=== PATIENT | male | born 2000 | race Caucasian/White ===

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

== ENCOUNTER 2022-02-03 20:27 | Emergency (ER) | payer OTHER, SELFPAY ==
[2022-02-03] VITALS (9 sets, daily range): BP systolic 106–121; BP diastolic 43–59; PULSE 65–98; RESP 14–18; TEMP 36.8; O2SAT 97–100
--- NOTE | 2022-02-03 20:45 | DI.CT_ITS ---
Exam(s) CT RENAL COLIC WO EXAM: CT RENAL COLIC WO CLINICAL HISTORY: left flank pain. TECHNIQUE: Imaging Protocol: Axial computed tomography images with coronal and sagittal reformatted images were created and reviewed. COMPARISON: No exams were available for comparison FINDINGS: ABDOMEN: Lung Bases: Normal where visualized. Liver: Normal density. No measurable mass. Gallbladder and biliary tract: No radiodense calculus or biliary ductal dilation. Pancreas: Normal density, no abnormal calcifications or inflammatory process. Spleen: Normal. Kidneys: Normal size, contour and axis.No radiodense stones or obstructive uropathy. No masses seen. Adrenal glands: No mass is seen. Lymph nodes: There are mildly prominent lymph nodes seen in the mesentery and right lower quadrant. Abdominal Aorta: Abdominal portion non-dilated. PELVIS: Bladder:Symmetric distention, no gross wall thickening. Bowel: No obstruction or bowel wall thickening. Appendix is unremarkable. Peritoneal cavity: No ascites, collection or mesenteric inflammatory response. No free air. Reproductive organs: Unremarkable as visualized. Bones: Within normal limits. Soft Tissues: Within normal limits. IMPRESSION: 1. No evidence of nephrolithiasis or hydronephrosis. 2. Mildly prominent lymph nodes in the mesentery and right lower quadrant which may represent a mesen teric adenitis/enteritis. RADIATION DOSE DELIVERED: 1,057.42mGy.cm Total DLP DATA REPOSITORY: All CT scans at this facility are submitted to the National Radiology Data Registry (NRDR) Dose Index Registry (DIR) with the [employer] (ACR). RADIATION OPTIMIZATION: All CT scans at this facility use at least one of these dose optimization te chniques: automated exposure control; mA and/or kV adjustment per patient size (includes targeted exa ms where dose is matched to clinical indication); or iterative reconstruction.
--- NOTE | 2022-02-03 20:53 | ED.GENADUL_ITS ---
Discharge Plan Disposition Patient Disposition: HOME Condition: Stable Discharge Details Clinical Impression: Abdominal pain Primary Care Provider: Anisa Arroyo ED Provider: Eric Park Home Meds and New Rx's Prescriptions: New ondansetron 4 mg tablet,disintegrating 4 mg PO Q8H PRN (Reason: nausea and vomiting) Qty: 30 0RF Continued trazodone 50 mg Tablet 50 mg PO HS PRN spironolactone 100 mg Tablet 100 mg PO DAILY estradiol 2 mg Tablet 2 mg PO DAILY fluoxetine 60 mg Tablet 60 mg PO DAILY methylphenidate HCl 27 mg Tablet Extended Release 24hr 27 mg PO DAILY Discharge Instructions Instructions: Mesenteric Adenitis (ED) Additional Instructions: if pain continues next week follow up with your primary care provider if you feel more ill, have severe worsening pain despite tylenol and ibuprofen or persistent vomit return to the emergency department Medical Decision Making 21 yo male who denies chronic medical problems or prior abdominal surgeries comes in with cc of left upper and left oblique area pain. He states he felt well all day then was in bed when he had sudden onset of pain in above stated area. Also has nausea, denies vomit. Denies urinary symptoms, no fevers/chills, no testicle pain or swelling. He appears in pain but is stable. He is tender to the luq without guarding and left oblique, no cva tenderness, no rashes, no distention, no right sided abdomen pain. Given sudden onset of pain and location concern for kidney stone and less likely pancreatitis, will order cbc, cmp, lipase, and ct renal colic to further evaluate labs unremarkable, ct shows signs of adenitis. He states his pain is now gone completely after one dose of toradol, no abdominal tenderness on exam. Given reassuring findings and improvement with toradol will d/c and advised to f/u with pcp, return precautions given Differential Diagnosis Differential Diagnosis: kidney stone, diverticulitis, colitis Imaging Data Radiologic Study: Attestation: I personally reviewed and interpreted this imaging study as follows: Imaging: CT Scan Radiologist's impression: Question mild adenitis/enteritis No CT evidence for obstructive uropathy Lab Data Lab results reviewed: Yes I reviewed the patient's lab results. HPI General Mode of arrival: ambulatory . Date/Time Provider Initiated Documentation: 02/03/22 20:32 . Limitations to Documentation: no limitations . Information obtained by: patient . History of Present Illness 21 year old M presents to the emergency department with the chief complaint of left oblique/abdomen pain, described as moderate and severe, Quality is described as sharp, and is localized to the abdomen. Patient reports no radiation. Patient started experiencing this hour(s) (1) and it has been constant. No relieving factors improve symptom(s), No exacerbating factors reported . Patient notes denies chest pain and weakness. Patient did receive the following treatments prior to arrival, none Related Data Home Medications Medication Instructions Recorded Confirmed methylphenidate HCl 27 mg 27 mg PO DAILY 12/05/18 12/05/18 tablet,extended release 24 hr estradiol 2 mg tablet 2 mg PO DAILY 02/03/22 02/03/22 fluoxetine 60 mg tablet 60 mg PO DAILY 02/03/22 02/03/22 ondansetron 4 mg disintegrating 4 mg PO Q8H PRN nausea and 02/03/22 tablet vomiting #30 tabs spironolactone 100 mg tablet 100 mg PO DAILY 02/03/22 02/03/22 trazodone 50 mg tablet 50 mg PO HS PRN 02/03/22 02/03/22 Previous Rx's Medication Instructions Recorded ondansetron 4 mg disintegrating 4 mg PO Q8H PRN nausea and 02/03/22 tablet vomiting #30 tabs Allergies Allergy/AdvReac Type Severity Reaction Status Date / Time No Known Allergies Allergy Unverified 02/03/22 20:43 General Stated Complaint: Abd Prob VENANCIO: 3 Review of Systems All systems reviewed & are unremarkable except as noted in HPI and below Constitutional Constitutional: Denies chills, Denies fever(s) and Denies weakness Cardiovascular Cardiovascular: Denies chest pain and Denies dyspnea Respiratory Respiratory: Denies cough and Denies dyspnea Gastrointestinal Gastrointestinal: Denies vomiting Genitourinary Genitourinary: Denies dysuria Musculoskeletal Musculoskeletal: Denies joint swelling Integumentary/Breasts Skin/Breast: Denies rash Neurologic Neurologic: Denies weakness PFSH All Active Problems (Updated 02/03/22 @ 22:13 by Eric Park MD) Abdominal pain (Acute) Social History Smoking/Tobacco Use Status: Never Smoking risk assessment performed?: Yes Alcohol Intake: never Drug use: Never Substance use type: marijuana Do you feel safe at home: Yes Do you feel safe in your relationship?: Yes Exam Const General: no acute distress Orientation: alert HENMT Head: normal to inspection Ears: external ears normal General nose exam: external nose normal Mouth: moist mucous membranes Eyes General: appearance normal, both eyes and all related structures Neck Neck: normal visual inspection Resp Effort & Inspection: normal respiratory effort and able to speak in complete sen tences Cardio Rate: regular rate GI Palpation: soft and tender Back/Spine/Pelvis Back: no CVA tenderness Skin General skin exam: no rashes or lesions noted Neuro General: patient alert and patient oriented x3 Extrem General: normal to inspection Psych Mental Status: mental status grossly normal Course Vital Signs Vital signs: Vital Signs Temperature 36.8 C 02/03/22 20:39 Pulse 98 H 02/03/22 20:39 Respiratory Rate 18 02/03/22 20:39 Blood Pressure 121/59 L 02/03/22 20:39 Pulse Oximetry 97 02/03/22 20:39 Temperature 36.8 C 02/03/22 20:39 Temperature Source Oral 02/03/22 20:39 Pulse 98 H 02/03/22 20:39 Respiratory Rate 18 02/03/22 20:39 Respiratory Effort Non-Labored 02/03/22 20:47 Blood Pressure 121/59 L 02/03/22 20:39 Pulse Oximetry 97 02/03/22 20:39 Oxygen Delivery Method Room Air 02/03/22 20:39 Oxygen Flow Rate 0 02/03/22 20:39 Pain Level 9 02/03/22 20:39
[2022-02-03] MEDS: Normal Saline 1,000 ML 1000 ML IV (21:18)
[2022-02-03] MEDS: Ketorolac 15 MG/ML VIAL IVP (21:19)
[2022-02-03 21:30] LABS: Abs Immature Grans 0.03 10^3/uL (0.0-0.06); Absolute Basophil Count 0.03 10^3/uL (0.0-0.2); Absolute Lymphocyte Count 2.48 10^3/uL (1.2-3.4); Absolute Monocyte Count 0.52 10^3/uL (0.1-0.8); Absolute Neutrophil Count 6.74 10^3/uL (1.2-6.7); Basophils % 0.3; HCT 42.9 % (40.0-50.0); HGB 14.3 g/dL (13.5-17.5); Immature Grans % 0.3; Lymphocytes % 25.1; MCH 27.9 pg (27.0-33.0); MCHC 33.3 % (32.0-36.0); MCV 84 fL (80-95); MPV 9.4 fL (8.0-11.0); Monocytes % 5.3; Platelet Count 427 10^3/uL (130-400); RBC 5.12 10^6/uL (4.36-5.78); RDW 12.2 % (11.8-14.1)
[2022-02-03] MEDS: Ondansetron 4 MG/2 ML VIAL IVP (21:34)
[2022-02-03 21:45] LABS: ALT 16 U/L (16-63); AST 14 U/L (15-37); Albumin 4.3 g/dL (3.4-5.0); Alkaline Phosphatase 100 U/L (46-116); Anion Gap 7.6 mmol/L (3-11); BUN 10 mg/dL (7-18); Bilirubin, Total 0.4 mg/dL (0.2-1.0); CO2 27.4 mmol/L (21.0-32.0); Calcium 9.2 mg/dL (8.5-10.1); Chloride 104 mmol/L (98-107); Estimated GFR 111.19 (mL/min/1.73m2); Glucose 111 mg/dL (74-106); Lipase 90 U/L (73-393); Potassium 3.5 mmol/L (3.5-5.1); Sodium 139 mmol/L (136-145); Total Protein 8.1 g/dL (6.4-8.2)
--- NOTE | 2022-02-03 21:46 | DI.VRAD_ITS ---
PROCEDURE INFORMATION: Exam: CT Abdomen And Pelvis Without Contrast Exam date and time: 02/03/2022 9:32 PM Age: 21 years old Clinical indication: Condition or disease; Other: Left flank pain TECHNIQUE: Imaging protocol: Computed tomography of the abdomen and pelvis without contrast. COMPARISON: CR XR CHEST 2V PA LATERAL 12/05/2018 11:32 AM FINDINGS: Liver: Normal. No mass. Gallbladder and bile ducts: Normal. No calcified stones. No ductal dilation. Pancreas: Normal. No ductal dilation. Spleen: Normal. No splenomegaly. Adrenal glands: Normal. No mass. Kidneys and ureters: Normal. No hydronephrosis. Stomach and bowel: No obstruction. Question mild mucosal thickening. Appendix: No evidence of appendicitis. Intraperitoneal space: Unremarkable. No free air. No significant fluid collection. Vasculature: Unremarkable. No abdominal aortic aneurysm. Lymph nodes: Prominent mesenteric lymph nodes. Urinary bladder: Unremarkable as visualized. Reproductive: Unremarkable as visualized. Bones/joints: Unremarkable. No acute fracture. Soft tissues: Unremarkable. IMPRESSION: Question mild adenitis/enteritis No CT evidence for obstructive uropathy Dictated and Authenticated by: Zain Motley MD. Ordering:TERRI Reyes MD
== END 2022-02-03 22:35 | disposition home or self-care (01) ==
PROVIDERS: Emergency Provider Emergency Medicine; PCP Pediatrics
DX: R10.12 Left upper quadrant pain (principal); R10.32 Left lower quadrant pain; R11.0 Nausea
CPT/HCPCS: 36415; 80053; 83690; 96361; 96374; 96375; 99284; 74176; 85025; J1885; J2405

== ENCOUNTER 2022-04-29 15:30 | Emergency (ER) | payer OTHER, SELFPAY ==
[2022-04-29 15:36] VITALS: BP 117/50; PULSE 84; TEMP 36.6; O2SAT 97
--- NOTE | 2022-04-29 15:45 | DI.RAD_ITS ---
Exam(s) XR HAND LT COMPLETE EXAM: XR HAND LT COMPLETE CLINICAL HISTORY: Injury left index finger TECHNIQUE: COMPARISON: No exams were available for comparison FINDINGS: Three views were obtained. There is no evidence of acute fracture or dislocation. IMPRESSION: RADIATION DOSE DELIVERED: Total DLP
--- NOTE | 2022-04-29 16:29 | ED.GENADUL_ITS ---
Discharge Plan Disposition Patient Disposition: Home Condition: Stable Discharge Details Clinical Impression: Crushing injury of left index finger, initial encounter Primary Care Provider: Anisa Arroyo ED Provider: Emma Yuan Home Meds and New Rx's Prescriptions: No Action trazodone 50 mg Tablet 50 mg PO HS PRN spironolactone 100 mg Tablet 100 mg PO DAILY estradiol 2 mg Tablet 2 mg PO DAILY fluoxetine 60 mg Tablet 60 mg PO DAILY ondansetron 4 mg tablet,disintegrating 4 mg PO Q8H PRN (Reason: nausea and vomiting) Qty: 30 0RF methylphenidate HCl 27 mg Tablet Extended Release 24hr 27 mg PO DAILY Discharge Instructions Instructions: Crush Injury (ED) Additional Instructions: Wear the finger splint daily as needed for comfort. Please take Tylenol or Ibuprofen with food every 4-6 hours as needed for pain and swelling. Follow-up with orthopedics within the next 1 to 2 weeks. You are placed on a care management list. She will call you for an appointment however you may call them tomorrow morning to make an appointment. Stand Alone Forms: Work Release Referrals: Timothy Santos MD [ [facility] STAFF PHYSICIAN] - 1 week Discharge Data Discharge Date/Time-TO BE ENTERED AT DEPARTURE: 04/29/22 17:12 Medical Decision Making 21-year-old male presents to the ER chief complaint of left finger pain status post crush injury while at work prior to arrival. Phalanx tenderness and swelling. We will have patient follow up with Ortho for further evaluation and [facility] which is to rule out fracture or tendon injury. Will place patient in an alligator aluminum splint and instructed on RICE procedures and Tylenol ibuprofen. X-ray results noted below. I am questioning a abnormality at the head of the proximal phalanx this is where the patient is tender. However this could just be a sprain. Will place patient in splint instructed on RICE procedures Tylenol ibuprofen and follow-up with Ortho if needed. This text was generated using [employer] system, please disregard any oddities of phrase or misspellings. Imaging Data Radiologic Study: Imaging: X-Ray Radiologist's impression: XR HAND LT COMPLETE EXAM: XR HAND LT COMPLETE CLINICAL HISTORY: Injury left index finger TECHNIQUE: COMPARISON: No exams were available for comparison FINDINGS: Three views were obtained. There is no evidence of acute fracture or dislocation. Sign Out No HPI General Mode of arrival: ambulatory . Date/Time Provider Initiated Documentation: 04/29/22 15:52 . Information obtained by: patient, RN notes reviewed and old records reviewed . HPI Narrative: 21-year-old male presents to the ER chief complaint of left finger pain status post crush injury while at work prior to arrival. He reports a large metal piece of equipment slammed down on his finger. He is having difficulty flexing his finger. Distal circulation and sensation intact. Related Data Home Medications Medication Instructions Recorded Confirmed methylphenidate HCl 27 mg 27 mg PO DAILY 12/05/18 04/29/22 tablet,extended release 24 hr estradiol 2 mg tablet 2 mg PO DAILY 02/03/22 04/29/22 fluoxetine 60 mg tablet 60 mg PO DAILY 02/03/22 04/29/22 ondansetron 4 mg disintegrating 4 mg PO Q8H PRN nausea and 02/03/22 04/29/22 tablet vomiting #30 tabs spironolactone 100 mg tablet 100 mg PO DAILY 02/03/22 04/29/22 trazodone 50 mg tablet 50 mg PO HS PRN 02/03/22 04/29/22 Previous Rx's Medication Instructions Recorded ondansetron 4 mg disintegrating 4 mg PO Q8H PRN nausea and 02/03/22 tablet vomiting #30 tabs Allergies Allergy/AdvReac Type Severity Reaction Status Date / Time No Known Allergies Allergy Unverified 04/29/22 15:39 General Stated Complaint: Orthopedic VENANCIO: 4 Review of Systems Musculoskeletal Musculoskeletal: Reports as per HPI, Reports arthralgias, Reports joint swelling and Reports limited range of motion PFSH All Active Problems (Updated 04/29/22 @ 16:53 by Emma Yuan NP) Crushing injury of left index finger, initial encounter (Acute) Social History Smoking/Tobacco Use Status: Never Smoking risk assessment performed?: Yes Alcohol Intake: never Drug use: Occasionally Substance use type: marijuana Do you feel safe at home: Yes Do you feel safe in your relationship?: Yes Exam Extrem Left upper extremity: hand (Decreased active flexion, intact passive flexion, no obvious deformity ) Details: normal to inspection, normal capillary refill, neurosensory exam normal and tenderness; no lacerations, no foreign bodies and no puncture wound Course Vital Signs Vital signs: Vital Signs Temperature 36.6 C 04/29/22 15:36 Pulse 84 04/29/22 15:36 Blood Pressure 117/50 L 04/29/22 15:36 Pulse Oximetry 97 04/29/22 15:36 Temperature 36.6 C 04/29/22 15:36 Temperature Source Temporal Artery Scan 04/29/22 15:36 Pulse 84 04/29/22 15:36 Respiratory Effort Non-Labored 04/29/22 15:41 Blood Pressure 117/50 L 04/29/22 15:36 Blood Pressure Position Sitting 04/29/22 15:36 Pulse Oximetry 97 04/29/22 15:36 Oxygen Delivery Method Room Air 04/29/22 15:36 Oxygen Flow Rate 0 04/29/22 15:36
[2022-04-29] MEDS: Ibuprofen 600 MG TAB PO (17:09)
== END 2022-04-29 17:12 | disposition home or self-care (01) ==
PROVIDERS: Emergency Provider Registered Nurse Emergency; PCP Pediatrics
DX: S67.191A Crushing injury of left index finger, initial encounter (principal); W23.0XXA Caught, crushed, jammed, or pinched between moving objects, initial encounter; Y99.0 Civilian activity done for income or pay
CPT/HCPCS: 29130; 99283; 73130

== ENCOUNTER 2022-06-17 19:41 | Emergency (ER) | payer OTHER, SELFPAY ==
[2022-06-17 19:48] VITALS: BP 118/56; PULSE 83; RESP 16; TEMP 37; O2SAT 99
--- NOTE | 2022-06-17 20:15 | DI.CT_ITS ---
Exam(s) CT HEAD CERVICAL SPINE WO EXAM: CT HEAD CERVICAL SPINE WO CLINICAL HISTORY: s/p head injury,pain whole head,worse back of head. TECHNIQUE: Imaging Protocol: Axial computed tomography images with coronal and sagittal reformatted images were created and reviewed COMPARISON: No exams were available for comparison FINDINGS: CT Head: Ventricles and Extra axial spaces: Normal in size and morphology for the patient's age. Hemorrhage: None. Cerebral parenchyma: Normal. Midline shift: None. Brainstem/Cerebellum: Normal. Calvarium: Normal. Visualized Paranasal sinuses/Mastoids: Clear. Soft Tissues: Unremarkable. CT Cervical Spine: Bones: No acute fracture or subluxation. There is straightening of the normal cervical lordosis which may be related to patient positioning or muscle spasm. Soft Tissues: Unremarkable. Lung Apices: Clear. IMPRESSION: 1. No acute intracranial process. 2. No acute fracture or subluxation in the cervical spine. RADIATION DOSE DELIVERED: 1,405.89mGy.cm Total DLP DATA REPOSITORY: All CT scans at this facility are submitted to the National Radiology Data Registry (NRDR) Dose Index Registry (DIR) with the [employer] (ACR). RADIATION OPTIMIZATION: All CT scans at this facility use at least one of these dose optimization te chniques: automated exposure control; mA and/or kV adjustment per patient size (includes targeted exa ms where dose is matched to clinical indication); or iterative reconstruction.
--- NOTE | 2022-06-17 20:20 | ED.GENADUL_ITS ---
Discharge Plan Disposition Patient Disposition: Home Condition: Improving Discharge Details Clinical Impression: Closed head injury without loss of consciousness Primary Care Provider: Anisa Arroyo ED Provider: Jessica Medina Home Meds and New Rx's Prescriptions: Continued trazodone 50 mg Tablet 50 mg PO HS PRN fluoxetine 60 mg Tablet 60 mg PO DAILY ondansetron 4 mg tablet,disintegrating 4 mg PO Q8H PRN (Reason: nausea and vomiting) Qty: 30 0RF estradiol 2 mg tablet 2 mg PO BID spironolactone 100 mg tablet 100 mg PO BID methylphenidate HCl 27 mg Tablet Extended Release 24hr 27 mg PO DAILY prazosin 1 mg Capsule 1 mg PO .QHS Discharge Instructions Instructions: Head Injury (ED), Post Concussion Syndrome (ED) Additional Instructions: Your imaging today is reassuring and shows no evidence of acute concerning findings. Drink plenty of fluids and get plenty of rest. Alternate tylenol and motrin as needed and directed for pain. Follow up with your primary care doctor in 1 week as needed. Return to the emergency department with any worsening or new concerning symptoms such as persistent or worsening headaches, persistent vomiting or any other concerns. Discharge Data Discharge Physician: Jessica Medina Medical Decision Making 21-year-old male who identifies as female presents with head injury that occurred 3 hours ago. No reported loss of consciousness or vomiting. Vitals within normal limits. She appears comfortable and nontoxic. There is no evidence of head trauma but has tenderness to the occipital portion of the scalp. No midline C-spine or bilateral paraspinal cervical tenderness. There is some reproducible neck pain with full extension. No focal deficits. Discussed patient's mechanism and exam at length and can offer CT imaging or can continue to monitor. Patient states she would like to proceed with CT imaging. Will order CT head and cervical spine and give a dose of Tylenol. CT head and cervical spine negative for acute findings. There is straightening of normal lordosis in the cervical spine consistent likely with muscle spasm. Patient feels comfortable going home. Postconcussive instructions provided. Advised to follow up with the primary care doctor for re-evaluation. Usual and customary return precautions given prior to discharge. Medical Records Medical records reviewed: Yes I reviewed the patient's medical records. Imaging Data Radiologic Study: Radiologist's impression: CT Head Without Contrast Exam date and time: 06/17/2022 8:39 PM Age: 21 years old Clinical indication: Injury or trauma; Blunt trauma and other: S/P head injury, pain whole head, worse back of head TECHNIQUE: Imaging protocol: Computed tomography of the head without contrast. COMPARISON: No relevant prior studies available. FINDINGS: Brain: Normal. No hemorrhage. Unremarkable white matter. No mass effect. Cerebral ventricles: No ventriculomegaly. Paranasal sinuses: Visualized sinuses are unremarkable. No fluid levels. Mastoid air cells: Visualized mastoid air cells are well aerated. Bones/joints: Unremarkable. No acute fracture. Soft tissues: Unremarkable. IMPRESSION: No acute intracranial abnormality. CT Cervical Spine Without Contrast Exam date and time: 06/17/2022 8:39 PM Age: 21 years old Clinical indication: Injury or trauma; Blunt trauma and other: S/P head injury, pain whole head, worse back of head TECHNIQUE: Imaging protocol: Computed tomography of the cervical spine without contrast. COMPARISON: CR XR CHEST 2V PA LATERAL 12/05/2018 11:32 AM FINDINGS: Bones/joints: No acute fracture.? Mild lordosis straightening No significant disc protrusion. No severe spinal canal stenosis.? Lungs: Lung apices are normal. Soft tissues: Unremarkable. IMPRESSION: No acute cervical fracture Mild lordosis straightening which may be positional or related to muscle spasm HPI General Mode of arrival: ambulatory . Date/Time Provider Initiated Documentation: 06/17/22 20:01 . Limitations to Documentation: no limitations . Information obtained by: patient . HPI Narrative: Patient is a 21-year-old male who identifies as female presents with headache after some fall on ice with head injury 3 hours ago. Patient states she was walking when she slipped on ice on cement and hit the back of her head on the hard ground. Patient admits to immediate headache but denies any loss of consciousness, blurry vision, nausea or vomiting. She states her headache was 8/10 but has improved to 4/10. She admits to some neck pain with range of motion, mostly extension of her head. She denies any other injuries. She has not taken any medication for pain. She states initially after the injury she felt the back of her head and then noticed a little bit of blood on her fingers which lasted about 5 minutes. She states her tetanus is up-to-date. Related Data Home Medications Medication Instructions Recorded Confirmed methylphenidate HCl 27 mg 27 mg PO DAILY 12/05/18 06/17/22 tablet,extended release 24 hr fluoxetine 60 mg tablet 60 mg PO DAILY 02/03/22 06/17/22 ondansetron 4 mg disintegrating 4 mg PO Q8H PRN nausea and 02/03/22 06/17/22 tablet vomiting #30 tabs trazodone 50 mg tablet 50 mg PO HS PRN 02/03/22 06/17/22 estradiol 2 mg tablet 2 mg PO BID 05/03/22 06/17/22 spironolactone 100 mg tablet 100 mg PO BID 05/03/22 06/17/22 prazosin 1 mg capsule 1 mg PO .QHS 06/17/22 06/17/22 Previous Rx's Medication Instructions Recorded ondansetron 4 mg disintegrating 4 mg PO Q8H PRN nausea and 02/03/22 tablet vomiting #30 tabs Allergies Allergy/AdvReac Type Severity Reaction Status Date / Time gluten Allergy Uncoded 06/17/22 19:53 tati Allergy Uncoded 06/17/22 19:53 raw tomatoe Allergy Uncoded 06/17/22 19:52 General Stated Complaint: HeadInjury VENANCIO: 3 Review of Systems All systems reviewed & are unremarkable except as noted in HPI and below Constitutional Constitutional: Reports as per HPI, Denies chills, Denies fever(s) and Reports headache(s) Eyes Eyes: Denies blurry vision ENT Ears, Nose, Mouth, and Throat: Reports dizziness, Reports headache(s), Denies sore throat and Denies throat swelling Cardiovascular Cardiovascular: Denies chest pain and Denies dyspnea Respiratory Respiratory: Denies cough and Denies dyspnea Gastrointestinal Gastrointestinal: Denies abdominal pain, Denies diarrhea and Denies vomiting Genitourinary Genitourinary: Denies hematuria and Denies dysuria Musculoskeletal Musculoskeletal: Denies back pain and Denies numbness Integumentary/Breasts Skin/Breast: Denies lesions and Denies rash Neurologic Neurologic: Reports dizziness, Reports headache(s), Denies localized weakness and Denies numbness Allergic/Immunologic Allergic/Immunologic: Denies throat swelling PFSH All Active Problems (Updated 06/17/22 @ 22:01 by Jessica Medina DO) Closed head injury without loss of consciousness (Acute) Medical History (Updated 06/17/22 @ 22:01 by Jessica Medina DO) ADHD Depression Transgender man on hormone therapy Surgical History (Updated 06/17/22 @ 22:01 by Jessica Medina DO) H/O wisdom tooth extraction Social History Smoking/Tobacco Use Status: Never Smoking risk assessment performed?: Yes Alcohol Intake: never Drug use: Occasionally Substance use type: marijuana Do you feel safe at home: Yes Do you feel safe in your relationship?: Yes Exam Const General: cooperative and no acute distress Orientation: alert, awake and oriented x3 HENMT Head: normal to inspection, no palpable skull fracture, normocephalic and atraumatic Ears: hearing grossly normal bilaterally, external ears normal and TM's normal bilaterally General nose exam: external nose normal Face and sinus: normal facial exam Mouth: oral mucosae normal Eyes General: appearance normal, both eyes and all related structures Pupils: PERRL EOM: EOM intact bilaterally Neck Neck: normal visual inspection and No submandibular swelling Lymphatic: no lymphadenopathy noted Chest Chest: normal inspection of the chest and no tenderness Resp Effort & Inspection: normal respiratory effort and able to speak in complete sentences Cardio Rate: regular rate Back/Spine/Pelvis Cervical Spine: No cervical muscular tenderness, No pain with cervical ROM and No cervical spinal tenderness Skin General skin exam: no rashes or lesions noted Neuro General: patient alert, patient awake and patient oriented x3 Cranial Nerves: CN's II-XI intact bilaterally Cognition: normal cognition Speech: speech normal Motor: muscle tone normal throughout and strength 5/5 throughout Sensory Exam: no sensory deficits noted Extrem General: normal to inspection, full ROM, capillary refill normal, no calf tenderness bilaterally and no edema Psych Appearance: grossly normal Mental Status: mental status grossly normal Speech and Movement: speech and movement normal Affect: normal affect Course Vital Signs Vital signs: Vital Signs Temperature 98.6 F 06/17/22 19:48 Pulse 83 06/17/22 19:48 Respiratory Rate 16 06/17/22 19:48 Blood Pressure 118/56 L 06/17/22 19:48 Pulse Oximetry 99 06/17/22 19:48 Temperature 98.6 F 06/17/22 19:48 Temperature Source Temporal Artery Scan 06/17/22 19:48 Pulse 83 06/17/22 19:48 Respiratory Rate 16 06/17/22 19:48 Respiratory Effort 06/17/22 20:04 Blood Pressure 118/56 L 06/17/22 19:48 Blood Pressure Position Sitting 06/17/22 19:48 Pulse Oximetry 99 06/17/22 19:48 Oxygen Delivery Method Room Air 06/17/22 19:48 Oxygen Flow Rate 0 06/17/22 19:48 Pain Level 4 06/17/22 19:48
[2022-06-17] MEDS: Acetaminophen 500 MG TAB 1000 MG PO (20:24)
--- NOTE | 2022-06-17 20:27 | NUR.NOTE ---
Pt placed in c-collar per ords.
--- NOTE | 2022-06-17 20:54 | DI.VRAD_ITS ---
PROCEDURE INFORMATION: Exam: CT Head Without Contrast Exam date and time: 06/17/2022 8:39 PM Age: 21 years old Clinical indication: Injury or trauma; Blunt trauma and other: S/P head injury, pain whole head, worse back of head TECHNIQUE: Imaging protocol: Computed tomography of the head without contrast. COMPARISON: No relevant prior studies available. FINDINGS: Brain: Normal. No hemorrhage. Unremarkable white matter. No mass effect. Cerebral ventricles: No ventriculomegaly. Paranasal sinuses: Visualized sinuses are unremarkable. No fluid levels. Mastoid air cells: Visualized mastoid air cells are well aerated. Bones/joints: Unremarkable. No acute fracture. Soft tissues: Unremarkable. IMPRESSION: No acute intracranial abnormality. PROCEDURE INFORMATION: Exam: CT Cervical Spine Without Contrast Exam date and time: 06/17/2022 8:39 PM Age: 21 years old Clinical indication: Injury or trauma; Blunt trauma and other: S/P head injury, pain whole head, worse back of head TECHNIQUE: Imaging protocol: Computed tomography of the cervical spine without contrast. COMPARISON: CR XR CHEST 2V PA LATERAL 12/05/2018 11:32 AM FINDINGS: Bones/joints: No acute fracture. Mild lordosis straightening No significant disc protrusion. No severe spinal canal stenosis. Lungs: Lung apices are normal. Soft tissues: Unremarkable. IMPRESSION: No acute cervical fracture Mild lordosis straightening which may be positional or related to muscle spasm Dictated and Authenticated by: Zain Motley MD. Ordering:AMANDA Lopez MD
[2022-06-17 21:22] VITALS: BP 114/46; PULSE 98; RESP 16; TEMP 36.8; O2SAT 97
== END 2022-06-17 21:24 | disposition home or self-care (01) ==
PROVIDERS: Emergency Provider Physician Assistant; PCP Pediatrics
DX: S09.8XXA Other specified injuries of head, initial encounter (principal); R40.2412 Glasgow coma scale score 13-15, at arrival to emergency department; W00.0XXA Fall on same level due to ice and snow, initial encounter
CPT/HCPCS: 99284; 70450; 72125

== ENCOUNTER 2023-05-04 04:06 | Emergency (ER) | payer OTHER, SELFPAY ==
[2023-05-04] VITALS (18 sets, daily range): BP systolic 90–136; BP diastolic 57–73; PULSE 70–92; RESP 12–24; TEMP 36.7; O2SAT 96–98
--- NOTE | 2023-05-04 04:00 | RT.EKG_ITS ---
APPROVED REPORT Exam: Resting ECG Reason for Exam: chest pain Patient Location: E HR:86 bpm ECG Measurements Heart Rate 86 AXIS AR 173 P 45 QRSd 96 QRS 20 QT 370 T 20 QTc 444 Conclusion Sinus rhythm normal axis no acute ST segment changes
[2023-05-04 04:39] LABS: Abs Immature Grans 0.04 10^3/uL (0.0-0.06); Absolute Basophil Count 0.04 10^3/uL (0.0-0.2); Absolute Lymphocyte Count 2.84 10^3/uL (1.2-3.4); Absolute Monocyte Count 0.55 10^3/uL (0.1-0.8); Basophils % 0.5; Eosinophils % 1.1; HCT 38.7 % (40.0-50.0); HGB 13.2 g/dL (13.5-17.5); Immature Grans % 0.5; Lymphocytes % 32.4; MCH 28.6 pg (27.0-33.0); MCHC 34.1 % (32.0-36.0); MCV 84 fL (80-95); MPV 8.8 fL (8.0-11.0); Monocytes % 6.3; Neutrophils % 59.2; Platelet Count 393 10^3/uL (130-400); RBC 4.62 10^6/uL (4.36-5.78); RDW-SD 36.6 fL; WBC 8.77 10^3/uL (4.4-10.8)
[2023-05-04 04:58] LABS: ALT 17 U/L (16-63); AST 12 U/L (15-37); Albumin 3.8 g/dL (3.4-5.0); Alkaline Phosphatase 80 U/L (46-116); BUN 14 mg/dL (7-18); Bilirubin, Total 0.3 mg/dL (0.2-1.0); CREATININE 0.9 mg/dL (0.70-1.30); Chloride 101 mmol/L (98-107); Estimated GFR 125.39 (mL/min/1.73m2); Glucose 101 mg/dL (74-106); Potassium 3.6 mmol/L (3.5-5.1); Sodium 139 mmol/L (136-145); Total Protein 7.4 g/dL (6.4-8.2)
[2023-05-04] MEDS: hydrOXYzine HCL 25 MG TAB 50 MG PO (04:59)
[2023-05-04 05:01] LABS: Troponin I < 50 ng/L (<or=60)
--- NOTE | 2023-05-04 05:03 | ED.GENADUL_ITS ---
Discharge Plan Disposition Patient Disposition: Home Condition: Stable Discharge Details Chief Complaint: Chest Pain Clinical Impression: Chest pain Primary Care Provider: Anisa Arroyo ED Provider: Rossana Dudley Home Meds and New Rx's Prescriptions: No Action trazodone 50 mg Tablet 50 mg PO HS PRN fluoxetine 60 mg Tablet 80 mg PO DAILY estradiol 2 mg tablet 2 mg PO BID spironolactone 100 mg tablet 100 mg PO BID methylphenidate HCl 27 mg Tablet Extended Release 24hr 20 mg PO DAILY prazosin 1 mg Capsule 2 mg PO .QHS Discharge Instructions Instructions: Chest Pain (ED) Medical Decision Making Emergent evaluation of chest pain. Patient is low risk for coronary disease however is on hormonal therapy for transition. Symptoms seem to be related to an anxiety provoking situation. She is not tachycardic, tachypneic or hypoxic, I have a low suspicion for a pulmonary embolism however given your hormonal therapy, will get D-dimer to further evaluate. 0520: lab work reviewed, cbc without leukocytosis or anemia. CMP unremarkable. Trop and ddimer are both negative. patient is feeling better after medication. at this time I feel she is stable for discharge home. RTER precautions advised. Medical Records Medical records reviewed: Yes I reviewed the patient's medical records. Lab Data Lab results reviewed: Yes I reviewed the patient's lab results. ECG Data Attestation: I personally reviewed and interpreted this ECG (s) as follows: Prior ECG tracings: not available for review Interpretation: sinus 86 normal axis, no ST segment changes HPI General Date/Time Provider Initiated Documentation: 05/04/23 04:22 . Limitations to Documentation: no limitations . Information obtained by: patient . HPI Narrative: 22-year-old M > F presents for evaluation of chest pain. She reports onset of chest pain starting just prior to arrival. She reports that she came downstairs and noted that the dogs had made a giant mess in the house. This caused her to feel sensation of chest tightness and sharp pain. It was associated with shortness of breath. No diaphoresis, nausea or vomiting. She reports symptoms have improved but are still present. Reports daily marijuana use, no tobacco. Is on hormonal therapy for her transition. Related Data Home Medications Medication Instructions Recorded Confirmed methylphenidate HCl 27 mg 20 mg PO DAILY 12/05/18 05/04/23 tablet,extended release 24 hr fluoxetine 60 mg tablet 80 mg PO DAILY 02/03/22 05/04/23 trazodone 50 mg tablet 50 mg PO HS PRN 02/03/22 05/04/23 estradiol 2 mg tablet 2 mg PO BID 05/03/22 05/04/23 spironolactone 100 mg tablet 100 mg PO BID 05/03/22 05/04/23 prazosin 1 mg capsule 2 mg PO .QHS 06/17/22 05/04/23 Allergies Allergy/AdvReac Type Severity Reaction Status Date / Time gluten Allergy Uncoded 05/04/23 04:16 tati Allergy Uncoded 05/04/23 04:16 raw tomatoe Allergy Uncoded 05/04/23 04:16 General Stated Complaint: Chest Pain VENANCIO: 3 PFSH All Active Problems (Updated 05/04/23 @ 05:23 by Rossana Dudley MD) Chest pain (Acute) Medical History Transgender man on hormone therapy ADHD Depression Surgical History H/O wisdom tooth extraction Social History Smoking/Tobacco Use Status: Never Smoking risk assessment performed?: Yes Alcohol Intake: never Drug use: Daily Substance use type: marijuana Do you feel safe at home: Yes Do you feel safe in your relationship?: Yes Exam Narrative Exam Narrative: Review of Systems: All systems reviewed & are unremarkable except as noted in HPI and below: CONSTITUTIONAL: Alert and oriented Well-developed, no acute distress HEENT: NCAT EYES: PERRL, no conjunctival injection CVS: RRR, No murmurs or gallops. Peripheral pulses 2+ and equal in all extremities Brisk capillary refill in all extremities. No peripheral edema RESP: Unlabored respiratory effort, Clear to auscultation bilaterally No wheezes rales or rhonchi GI: Soft, Nontender, Nondistended, No organomegaly MSK: Extremities with full range of motion, no deformity or TTP SKIN: Warm, Dry. No rashes or lesions. NEURO: No focal neurologic deficits. Course Vital Signs Vital signs: Vital Signs Temperature 36.7 C 05/04/23 04:09 Pulse 87 05/04/23 04:09 Respiratory Rate 18 05/04/23 04:09 Blood Pressure 136/64 05/04/23 04:09 Pulse Oximetry 97 05/04/23 04:09 Temperature 36.7 C 05/04/23 04:09 Pulse 87 05/04/23 04:09 Respiratory Rate 18 05/04/23 04:12 Respiratory Effort Normal 05/04/23 04:12 Respiratory Depth Normal 05/04/23 04:12 Respiratory Pattern Normal 05/04/23 04:12 Blood Pressure 136/64 05/04/23 04:09 Pulse Oximetry 97 05/04/23 04:09 Oxygen Delivery Method Room Air 05/04/23 04:09 Oxygen Flow Rate 0 05/04/23 04:09 Pain Level 8 05/04/23 04:09 Lab/Test Results Lab/Test Results: Laboratory Tests Range/Units 05/04/23 04:30 WBC (4.4-10.8) 10^3/uL 8.77 RBC (4.36-5.78) 10^6/uL 4.62 Hgb (13.5-17.5) g/dL 13.2 L Hct (40.0-50.0) % 38.7 L MCV (80-95) fL 84 MCH (27.0-33.0) pg 28.6 MCHC (32.0-36.0) % 34.1 RDW (11.8-14.1) % 12.0 Plt Count (130-400) 10^3/uL 393 MPV (8.0-11.0) fL 8.8 Immature Gran % 0.5 Neutrophils % 59.2 Lymphocytes % 32.4 Monocytes % 6.3 Eosinophils % 1.1 Basophils % 0.5 Nucleated RBC % (0.0-0.3) % 0.0 Absolute Neutrophils (1.2-6.7) 10^3/uL 5.20 Absolute Lymphocytes (1.2-3.4) 10^3/uL 2.84 Absolute Monocytes (0.1-0.8) 10^3/uL 0.55 Absolute Eosinophils (0.0-0.7) 10^3/uL 0.10 Absolute Basophils (0.0-0.2) 10^3/uL 0.04 Sodium (136-145) mmol/L 139 Potassium (3.5-5.1) mmol/L 3.6 Chloride (98-107) mmol/L 101 Carbon Dioxide (21.0-32.0) mmol/L 26.0 Anion Gap (3-11) mmol/L 12.0 H BUN (7-18) mg/dL 14 Creatinine (0.70-1.30) mg/dL 0.9 Est GFR (CKD-EPI 2020) (mL/min/1.73m2) 125.39 Glucose (74-106) mg/dL 101 Calcium (8.5-10.1) mg/dL 9.0 Total Bilirubin (0.2-1.0) mg/dL 0.3 AST (15-37) U/L 12 L ALT (16-63) U/L 17 Alkaline Phosphatase (46-116) U/L 80 Troponin I (<or=60) ng/L < 50 Total Protein (6.4-8.2) g/dL 7.4 Albumin (3.4-5.0) g/dL 3.8
[2023-05-04 05:15] LABS: D-Dimer 123 ng/mlFEU (<500)
== END 2023-05-04 05:53 | disposition home or self-care (01) ==
PROVIDERS: Emergency Provider Emergency Medicine; PCP Pediatrics
DX: R07.9 Chest pain, unspecified (principal); R06.02 Shortness of breath; F64.0 Transsexualism; F90.9 Attention-deficit hyperactivity disorder, unspecified type; F32.A Depression, unspecified
CPT/HCPCS: 80053; 93005; 99284; 84484; 85025; 85379; 93010